=== PATIENT | female | born 1940 | race Caucasian/White ===

== ENCOUNTER 2019-11-22 20:22 | Emergency (ER) | payer OTHER ==
[~2019-11-22] VITALS: Ht 172.7 cm; Wt 69.9 kg
[~2019-11-22 20:22] MED LIST: AMOX-263 PO; BIOT2500 PO; CARV6.25 PO; CYAN500L3 PO; DABI75CA6 PO; DIGO0.1262 PO; FLEC100T21 PO; LEVO75TA6 PO; METF-370 PO; OMEP20CA74 OR; RAMI5CAP40 PO; SIMV10TA84 PO; VITACAP PO; ZOLP-158 PO
[2019-11-22 20:41] VITALS: BP 159/88
[2019-11-23] MEDS ORDERED: ACETAMINOPHEN 325 MG TAB PO ONE
== END 2019-11-23 02:25 | disposition home or self-care (01) ==
LOC: ER 20:23
DX: S16.1XXA Strain of muscle, fascia and tendon at neck level, initial encounter (principal); S09.90XA Unspecified injury of head, initial encounter; Z79.01 Long term (current) use of anticoagulants; I48.91 Unspecified atrial fibrillation; I25.10 Atherosclerotic heart disease of native coronary artery without angina pectoris; E11.9 Type 2 diabetes mellitus without complications; E78.5 Hyperlipidemia, unspecified; I10 Essential (primary) hypertension; I25.2 Old myocardial infarction; Z79.899 Other long term (current) drug therapy; Z88.8 Allergy status to other drugs, medicaments and biological substances; W22.8XXA Striking against or struck by other objects, initial encounter; Y93.01 Activity, walking, marching and hiking; Y92.89 Other specified places as the place of occurrence of the external cause; Y99.8 Other external cause status
CPT/HCPCS: 70450; 72125

== ENCOUNTER 2022-08-29 13:04 | Inpatient (IN) | payer OTHER ==
[~2022-08-29] VITALS: Ht 167.6 cm; Wt 79.1 kg
[~2022-08-29 13:04] MED LIST changes: +FLEC100T PO; -FLEC100T21 PO; -ZOLP-158 PO; +ZOLP5TAB PO
[2022-08-29] MEDS ORDERED: methylPREDNISolone SOD SUCC 125 MG/2 ML VL IV ONE (13:30)
[2022-08-29 13:53] LABS: Basophils # (auto) 0 10 ^3/uL (0-0.2); Basophils % (auto) 0.6 % (0.0-2.0); Eosinophils # (auto) 0 10 ^3/uL (0-0.8); Eosinophils % (auto) 0.5 % (0.0-7.0); Hematocrit 40.4 % (36.0-46.0); Hemoglobin 13.4 g/dL (12.2-16.2); Lymphocytes # (auto) 1.6 10 ^3/uL (0.4-5.4); Lymphocytes % (auto) 21.7 % (10.0-50.0); Mean Corpuscular Hemoglobin 28.6 pg (28.0-32.0); Mean Corpuscular Hgb Conc. 33.3 g/dL (32.0-36.0); Mean Corpuscular Volume 85.8 fL (80.0-100.0); Monocytes # (auto) 0.5 10 ^3/uL (0-1.3); Monocytes % (auto) 7.5 % (0.0-12.0); Neutrophils # (auto) 5.1 10 ^3/uL (1.6-8.6); Neutrophils % (auto) 69.7 % (37.0-80.0); Nucleated Red Blood Cells % 0.1 %; Red Cell Distribution Width 14.6 % (11.8-14.3); White Blood Cell 7.4 10^3/uL (4.4-10.8)
[2022-08-29 14:47] LABS: Potassium 3.4 mmol/L (3.5-5.1)
[2022-08-29 14:49] LABS: BUN/Creatinine Ratio 12.2
[2022-08-29 14:50] LABS: Albumin 3.6 g/dL (3.4-5.0); Bilirubin, Total 1.5 mg/dL (0.2-1.0); Calcium 8.4 mg/dL (8.5-10.1); Total Protein 6.6 g/dL (6.4-8.2)
[2022-08-29 14:51] LABS: Magnesium 2.2 mg/dL (1.6-2.6)
[2022-08-29] MEDS ORDERED: dilTIAZem 25 MG/5 ML VIAL IV ONE (16:45)
[2022-08-29] MEDS ORDERED: IOHEXOL 350 MG/ML 100ML IJ ONE (17:18)
[2022-08-29] MEDS ORDERED: ACETAMINOPHEN 325 MG TAB PO PRN (19:30)
[2022-08-29] MEDS ORDERED: HYDROcodone-ACET 5/325MG TAB PO PRN (19:30)
[2022-08-29] MEDS ORDERED: SODIUM CHLORIDE 0.9% 1,000 ML IV ONE (19:30)
[2022-08-29] MEDS ORDERED: NITROGLYCERIN 0.4 MG SL TAB SL PRN (19:30)
[2022-08-29] MEDS ORDERED: POTASSIUM CHL 20 Meq TABLET PO ONE (19:30)
[2022-08-29] MEDS ORDERED: ASPirin 325 MG TAB PO ONE (19:30)
[2022-08-29] MEDS ORDERED: MORPHINE SULFATE INJ 2 MG/ml SYRG IV PRN ×2 (19:30)
[2022-08-29] MEDS ORDERED: ENOXAPARIN SOD 100 MG/1 ML SYRINGE SC ONE (19:30)
[2022-08-29 20:19] LABS: Cholesterol 103 mg/dL (< 200); Triglycerides 101 mg/dL (< 150)
[2022-08-29 20:23] LABS: HDL Cholesterol 35 mg/dL (40-59); LDL Cholesterol 65 mg/dL (< 100)
[2022-08-29 21:50] LABS: INR 1.18 (0.9-1.15)
[2022-08-30] VITALS (7 sets, daily range): BP systolic 101–113; BP diastolic 60–78
[2022-08-30] MEDS: CARVEDILOL 12.5 MG TAB PO SCH ×3 (00:44→22:54)
[2022-08-30] MEDS: ATORVASTATIN 20 MG TAB PO SCH ×2 (00:44→22:53)
[2022-08-30] MEDS ORDERED: LEVOTHYROXINE 75 MCG PO SCH (07:00)
[2022-08-30 07:56] LABS: Basophils # (auto) 0 10 ^3/uL (0-0.2); Basophils % (auto) 0.7 % (0.0-2.0); Eosinophils # (auto) 0.1 10 ^3/uL (0-0.8); Eosinophils % (auto) 0.9 % (0.0-7.0); Hematocrit 36.6 % (36.0-46.0); Hemoglobin 12.2 g/dL (12.2-16.2); Lymphocytes # (auto) 1.2 10 ^3/uL (0.4-5.4); Lymphocytes % (auto) 21.5 % (10.0-50.0); Mean Corpuscular Hgb Conc. 33.4 g/dL (32.0-36.0); Mean Corpuscular Volume 86.7 fL (80.0-100.0); Monocytes # (auto) 0.5 10 ^3/uL (0-1.3); Monocytes % (auto) 8.9 % (0.0-12.0); Neutrophils # (auto) 3.8 10 ^3/uL (1.6-8.6); Red Blood Cells 4.23 10^6/uL (4.0-5.20); Red Cell Distribution Width 14.5 % (11.8-14.3); White Blood Cell 5.6 10^3/uL (4.4-10.8)
[2022-08-30 08:15] LABS: Albumin 3.2 g/dL (3.4-5.0); Potassium 3.8 mmol/L (3.5-5.1)
[2022-08-30 08:18] LABS: Bilirubin, Total 1.1 mg/dL (0.2-1.0)
[2022-08-30] MEDS ORDERED: OMEPRAZOLE 20MG/10ML ORAL SUSP PO SCH (10:00)
[2022-08-30] MEDS ORDERED: PATIENTS OWN MEDICATION (Simvastatin 10 MG) PO SCH (10:00)
[2022-08-30] MEDS ORDERED: RAMIPRIL 5 MG PO SCH (10:00)
[2022-08-30] MEDS: ASPirin 81 mg TAB PO SCH (10:46)
[2022-08-30] MEDS: FUROSEMIDE 20 MG/2 ML VIAL IV SCH (10:46)
[2022-08-30] MEDS: PANTOPRAZOLE 40 MG TAB PO SCH (10:47)
[2022-08-30] MEDS: LISINOPRIL 10 MG TAB PO SCH (10:47)
[2022-08-30] MEDS: DIGOXIN 0.125 MG TAB PO SCH (10:48)
[2022-08-31] VITALS (7 sets, daily range): BP systolic 92–113; BP diastolic 49–67
[2022-08-31 06:04] LABS: Basophils # (auto) 0 10 ^3/uL (0-0.2); Basophils % (auto) 0.3 % (0.0-2.0); Eosinophils # (auto) 0.1 10 ^3/uL (0-0.8); Eosinophils % (auto) 1.1 % (0.0-7.0); Hematocrit 36.9 % (36.0-46.0); Hemoglobin 12.1 g/dL (12.2-16.2); Lymphocytes # (auto) 1.4 10 ^3/uL (0.4-5.4); Lymphocytes % (auto) 26.2 % (10.0-50.0); Mean Corpuscular Hemoglobin 28.2 pg (28.0-32.0); Mean Corpuscular Hgb Conc. 32.8 g/dL (32.0-36.0); Mean Corpuscular Volume 86.1 fL (80.0-100.0); Monocytes # (auto) 0.5 10 ^3/uL (0-1.3); Monocytes % (auto) 8.6 % (0.0-12.0); Neutrophils # (auto) 3.4 10 ^3/uL (1.6-8.6); Neutrophils % (auto) 63.8 % (37.0-80.0); Nucleated Red Blood Cells % 0.1 %; Red Blood Cells 4.29 10^6/uL (4.0-5.20); Red Cell Distribution Width 14.4 % (11.8-14.3); White Blood Cell 5.4 10^3/uL (4.4-10.8)
[2022-08-31] MEDS: LEVOTHYROXINE SODIUM 25 MCG TAB PO SCH (06:24)
[2022-08-31 06:45] LABS: Albumin 3.1 g/dL (3.4-5.0); Calcium 8.3 mg/dL (8.5-10.1); Potassium 3.7 mmol/L (3.5-5.1)
[2022-08-31 06:48] LABS: Bilirubin, Total 1.5 mg/dL (0.2-1.0); Total Protein 5.6 g/dL (6.4-8.2)
[2022-08-31] MEDS: ASPirin 81 mg TAB PO SCH (09:20)
[2022-08-31] MEDS: CARVEDILOL 12.5 MG TAB PO SCH ×2 (09:26→21:33)
[2022-08-31] MEDS: FUROSEMIDE 20 MG/2 ML VIAL IV SCH (09:27)
[2022-08-31] MEDS: LISINOPRIL 10 MG TAB PO SCH (09:27)
[2022-08-31] MEDS: DIGOXIN 0.125 MG TAB PO SCH (09:27)
[2022-08-31] MEDS: PANTOPRAZOLE 40 MG TAB PO SCH (09:27)
[2022-08-31] MEDS: ATORVASTATIN 20 MG TAB PO SCH (21:30)
[2022-09-01 06:07] VITALS: BP 102/61
[2022-09-01] MEDS: LEVOTHYROXINE SODIUM 25 MCG TAB PO SCH (06:33)
[2022-09-01 07:05] LABS: Basophils # (auto) 0 10 ^3/uL (0-0.2); Basophils % (auto) 0.7 % (0.0-2.0); Eosinophils # (auto) 0.1 10 ^3/uL (0-0.8); Eosinophils % (auto) 1.7 % (0.0-7.0); Hematocrit 38.5 % (36.0-46.0); Hemoglobin 12.6 g/dL (12.2-16.2); Lymphocytes # (auto) 1.3 10 ^3/uL (0.4-5.4); Lymphocytes % (auto) 22.7 % (10.0-50.0); Mean Corpuscular Hemoglobin 28.7 pg (28.0-32.0); Mean Corpuscular Hgb Conc. 32.8 g/dL (32.0-36.0); Mean Corpuscular Volume 87.5 fL (80.0-100.0); Monocytes # (auto) 0.4 10 ^3/uL (0-1.3); Neutrophils # (auto) 3.8 10 ^3/uL (1.6-8.6); Neutrophils % (auto) 67.9 % (37.0-80.0); Nucleated Red Blood Cells % 0.1 %; Red Cell Distribution Width 14.4 % (11.8-14.3); White Blood Cell 5.6 10^3/uL (4.4-10.8)
[2022-09-01 07:26] LABS: Albumin 3.2 g/dL (3.4-5.0); Calcium 8.3 mg/dL (8.5-10.1); Potassium 3.6 mmol/L (3.5-5.1)
[2022-09-01 07:29] LABS: Bilirubin, Total 1.5 mg/dL (0.2-1.0); Total Protein 6.3 g/dL (6.4-8.2)
[2022-09-01 08:01] VITALS: BP 108/66
[2022-09-01] MEDS: ASPirin 81 mg TAB PO SCH (09:30)
[2022-09-01] MEDS: LISINOPRIL 10 MG TAB PO SCH (09:30)
[2022-09-01] MEDS: FUROSEMIDE 20 MG/2 ML VIAL IV SCH (09:30)
[2022-09-01] MEDS: PANTOPRAZOLE 40 MG TAB PO SCH (09:31)
[2022-09-01] MEDS: DIGOXIN 0.125 MG TAB PO SCH (09:31)
[2022-09-01] MEDS: CARVEDILOL 12.5 MG TAB PO SCH (09:32)
[2022-09-01 12:23] VITALS: BP 115/61
== END 2022-09-01 13:33 | disposition home or self-care (01) | DRG 309 ==
LOC: ER 13:04 → EDBD 13:04 → TELE 19:19 → TELE-CENTR 08-30 02:00
PROVIDERS: ADMIT Registered Nurse; ATTEND Internal Medicine
DX: I48.0 Paroxysmal atrial fibrillation (principal); E44.1 Mild protein-calorie malnutrition; I24.9 Acute ischemic heart disease, unspecified; Q21.10 Atrial septal defect, unspecified; I10 Essential (primary) hypertension; I25.10 Atherosclerotic heart disease of native coronary artery without angina pectoris; R09.02 Hypoxemia; E03.9 Hypothyroidism, unspecified; E11.9 Type 2 diabetes mellitus without complications; E78.5 Hyperlipidemia, unspecified; I44.7 Left bundle-branch block, unspecified; I08.0 Rheumatic disorders of both mitral and aortic valves; Z20.822 Contact with and (suspected) exposure to COVID-19; Z96.651 Presence of right artificial knee joint; Z68.28 Body mass index [BMI] 28.0-28.9, adult; Z82.3 Family history of stroke; Z83.3 Family history of diabetes mellitus; I25.2 Old myocardial infarction; Z88.8 Allergy status to other drugs, medicaments and biological substances; Z90.49 Acquired absence of other specified parts of digestive tract
CPT/HCPCS: 36415; 71045; 71275; 80053; 80061; 83036; 83735; 83880; 84443; 84484; 85025; 85610; 87426; 93005; 93306; 99291; G0378